=== PATIENT | male | born 1990 | race American Indian/Alaskan Native ===

== ENCOUNTER 2020-06-06 03:34 | Emergency (ER) | payer SELFPAY ==
[2020-06-06 03:52] VITALS: BP 141/87
[2020-06-06] MEDS ORDERED: HYDROcodone/ACETAMINOPHEN 5-325 MG TAB PO STA (04:10)
--- NOTE | 2020-06-06 04:14 | Emergency Department Report ---
ED ENT HPI - General Chief complaint: Dental/Oral Stated complaint: ABSCESS Time Seen by Provider: 06/06/20 04:10 Source: patient Mode of arrival: Ambulatory Limitations: No Limitations - History of Present Illness Initial comments: 30-year-old [place] male with emerge department complaining of left lower molar pain off and on for the past several months but has flared up over the last couple days. No fevers chills or sweats the pain is worse with palpation and chewing. Reports no odynophagia or dysphasia. MD complaint: tooth pain -: Gradual Location: tooth # Severity: mild, moderate Quality: dull Consistency: constant Improves with: none Worsens with: none Context- Dental: history of dental caries, poor dental care - Related Data Previous Rx's Medication Instructions Recorded Last Taken Type Chlorhexidine Mouthwash [Peridex] 15 ml MM BID #1 bottle 06/06/20 Unknown Rx Clindamycin [Clindamycin CAP] 150 mg PO Q8HR #21 capsule 06/06/20 Unknown Rx Ketorolac [Toradol] 10 mg PO Q6H PRN #10 tablet 06/06/20 Unknown Rx Lidocaine Viscous 2% 5 ml MM Q3H PRN #120 udc 06/06/20 Unknown Rx Allergies Allergy/AdvReac Type Severity Reaction Status Date / Time amoxicillin Allergy Hives Verified 06/06/20 04:00 ED Dental HPI - General Chief complaint: Dental/Oral Stated complaint: ABSCESS Time Seen by Provider: 06/06/20 04:10 Source: patient Mode of arrival: Ambulatory Limitations: No Limitations - Related Data Previous Rx's Medication Instructions Recorded Last Taken Type Chlorhexidine Mouthwash [Peridex] 15 ml MM BID #1 bottle 06/06/20 Unknown Rx Clindamycin [Clindamycin CAP] 150 mg PO Q8HR #21 capsule 06/06/20 Unknown Rx Ketorolac [Toradol] 10 mg PO Q6H PRN #10 tablet 06/06/20 Unknown Rx Lidocaine Viscous 2% 5 ml MM Q3H PRN #120 udc 06/06/20 Unknown Rx Allergies Allergy/AdvReac Type Severity Reaction Status Date / Time amoxicillin Allergy Hives Verified 06/06/20 04:00 ED Review of Systems ROS: Stated complaint: ABSCESS Other details as noted in HPI Comment: All other systems reviewed and negative ED Past Medical Hx - Past Medical History Previous Medical History?: No - Surgical History Past Surgical History?: No - Social History Smoking Status: Current Every Day Smoker Substance Use Type: Marijuana - Medications Home Medications: Home Medications Medication Instructions Recorded Confirmed Last Taken Type Chlorhexidine Mouthwash [Peridex] 15 ml MM BID #1 bottle 06/06/20 Unknown Rx Clindamycin [Clindamycin CAP] 150 mg PO Q8HR #21 capsule 06/06/20 Unknown Rx Ketorolac [Toradol] 10 mg PO Q6H PRN #10 tablet 06/06/20 Unknown Rx Lidocaine Viscous 2% 5 ml MM Q3H PRN #120 udc 06/06/20 Unknown Rx ED Physical Exam - General Limitations: No Limitations General appearance: alert, in no apparent distress - Head Head exam: Present: atraumatic, normocephalic - Eye Eye exam: Present: normal appearance - ENT ENT exam: Present: mucous membranes moist, other (Pain to the left lower molars with palpation and dental fracture tooth 19 with adjacent early abscess formation. Tongue and uvula midline no exudate. Voice is normal no drooling) - Neck Neck exam: Present: normal inspection - Respiratory Respiratory exam: Present: normal lung sounds bilaterally. Absent: respiratory distress - Cardiovascular Cardiovascular Exam: Present: regular rate, normal rhythm. Absent: systolic murmur, diastolic murmur, rubs, gallop - GI/Abdominal GI/Abdominal exam: Present: soft, normal bowel sounds - Rectal Rectal exam: Present: deferred - Extremities Exam Extremities exam: Present: normal inspection - Back Exam Back exam: Present: normal inspection - Neurological Exam Neurological exam: Present: alert, oriented X3 - Psychiatric Psychiatric exam: Present: normal affect, normal mood - Skin Skin exam: Present: warm, dry, intact, normal color. Absent: rash ED Course Vital Signs 06/06/20 03:44 Temperature 98.0 F Pulse Rate 73 Respiratory 16 Rate Blood Pressure 141/87 O2 Sat by Pulse 100 Oximetry Critical care attestation.: If time is entered above; I have spent that time in minutes in the direct care of this critically ill patient, excluding procedure time. ED Disposition Clinical Impression: Dental infection Disposition: DC-01 TO HOME OR SELFCARE Is pt being admited?: No Does the pt Need Aspirin: No Condition: Stable Instructions: Toothache (ED), Dental Caries (ED), Dental Abscess (ED) Prescriptions: Clindamycin [Clindamycin CAP] 150 mg PO Q8HR #21 capsule Ketorolac [Toradol] 10 mg PO Q6H PRN #10 tablet PRN Reason: Pain Referrals: PRIMARY CARE, [Primary Care Provider] - 3-5 Days [facility] [Outside] - 3-5 Days
== END 2020-06-06 04:25 | disposition home or self-care (01) ==
LOC: ED 03:34
DX: K04.7 Periapical abscess without sinus (principal); F17.200 Nicotine dependence, unspecified, uncomplicated; F12.10 Cannabis abuse, uncomplicated; Z79.899 Other long term (current) drug therapy; Z88.1 Allergy status to other antibiotic agents
CPT/HCPCS: 99282